=== PATIENT | female | born 1970 | race Two or more races ===

== ENCOUNTER 2019-04-14 18:07 | Emergency (ER) | payer OTHER ==
[~2019-04-14] VITALS: Ht 162.6 cm; Wt 90.7 kg
[~2019-04-14 18:07] MED LIST: HYDR1TAB94 PO; IBUP800 PO; NITR100 PO; NITR100CA PO; OXYB5 PO; PROM25 PO; Pyridium100 MG PO; TAMS.4ER PO
[2019-04-14] MEDS ORDERED: Crutch1 EACH MISC (19:07)
== END 2019-04-14 19:17 | disposition home or self-care (01) ==
LOC: ER 18:07
DX: S90.32XA Contusion of left foot, initial encounter (principal); I10 Essential (primary) hypertension; Z87.442 Personal history of urinary calculi; Z88.0 Allergy status to penicillin; Z88.2 Allergy status to sulfonamides; Z91.018 Allergy to other foods; Z88.8 Allergy status to other drugs, medicaments and biological substances; X58.XXXA Exposure to other specified factors, initial encounter
CPT/HCPCS: 73630; 99283-25; A9270-GY

== ENCOUNTER → 2021-03-11 | Outpatient (CLI) | payer OTHER ==
[~2021-03-11] MED LIST changes: +Crutch1 EACH MISC
== END ==
LOC: LAB SHORT 13:45
DX: R93.89 Abnormal findings on diagnostic imaging of other specified body structures (principal); Z88.0 Allergy status to penicillin; Z88.2 Allergy status to sulfonamides; Z91.013 Allergy to seafood; Z91.018 Allergy to other foods
CPT/HCPCS: 88305

== ENCOUNTER 2023-02-02 06:45 | Day surgery (SDC) | payer OTHER ==
[~2023-02-02] VITALS: Ht 162.6 cm; Wt 103.8 kg
[~2023-02-02 06:45] MED LIST changes: +LOSARTAN-HCTZ1 EACH PO; +OMEP20ER PO
[2023-02-02] MEDS ORDERED: VITAMIN D310 MC4 (07:17)
[2023-02-02] MEDS ORDERED: ZINC15 (07:17)
[2023-02-02] MEDS ORDERED: CENTRUM SILVER1 EAC2 (07:17)
[2023-02-02 09:05] VITALS: BP 120/77
== END 2023-02-02 09:06 | disposition home or self-care (01) ==
LOC: ORSCSDS 06:45
PROVIDERS: Surgery
PROC: 0DJD8ZZ Inspection of Lower Intestinal Tract, Via Natural or Artificial Opening Endoscopic (ICD-10-PCS; principal; 2023-02-02 08:00)
DX: D17.5 Benign lipomatous neoplasm of intra-abdominal organs (principal); R93.3 Abnormal findings on diagnostic imaging of other parts of digestive tract; I10 Essential (primary) hypertension; Z79.899 Other long term (current) drug therapy
CPT/HCPCS: J2405; J2704; J7120

== ENCOUNTER 2023-05-04 18:14 | Emergency (ER) | payer OTHER ==
[~2023-05-04] VITALS: Ht 162.6 cm; Wt 77.1 kg
[~2023-05-04 18:14] MED LIST changes: +CENTRUM SILVER1 EAC2; +VITAMIN D310 MC4; +ZINC15
[2023-05-04 18:20] VITALS: BP 160/100
[2023-05-04 19:20] LABS: Source, Urine Clean Catch
[2023-05-04 19:23] LABS: Appearance, Urine Hazy (Clear); Bilirubin, Urine Neg (Neg); Blood, Urine 4+ (Neg); Color, Urine Yellow (P-Yellow); Glucose Qualitative, Urine Neg (Neg); Ketones, Urine Neg (Neg); Leukocyte Esterase, Urine 1+ (Neg); Nitrite, Urine Neg (Neg); Protein, Urine 1+ (Neg); Urobilinogen, Urine NORM (Normal)
[2023-05-04 19:31] LABS: Bacteria Many /hpf; Squamous Epithelial Cells Few /hpf (Few)
[2023-05-04] MEDS ORDERED: Cefpodoxime Pr100 MG PO (21:04)
[2023-05-04] MEDS ORDERED: Pyridium100 MG PO (21:04)
== END 2023-05-04 21:09 | disposition home or self-care (01) ==
LOC: ER 18:14
PROVIDERS: Physician Assistant
DX: N39.0 Urinary tract infection, site not specified (principal); I10 Essential (primary) hypertension; Z87.440 Personal history of urinary (tract) infections; Z79.899 Other long term (current) drug therapy; Z88.0 Allergy status to penicillin; Z88.2 Allergy status to sulfonamides; Z91.013 Allergy to seafood; Z91.018 Allergy to other foods
CPT/HCPCS: 81001; 87086; 96372; 99283-25; A9270; J1885